=== PATIENT | male | born 1960 | race Caucasian/White ===

== ENCOUNTER → 2020-05-06 08:09 | Outpatient (BNVA) | payer SELFPAY | PROVIDERS: Visit Provider Internal Medicine ==

== ENCOUNTER 2025-05-16 10:45 | Outpatient (AMB) | payer OTHER, SELFPAY ==
[2025-05-16 11:20] VITALS: BMI 37.7
--- NOTE | 2025-05-16 11:20 | A.SPINEOV_ITS ---
Vital Signs 05/16/25 11:20 Height 5 ft 9 in Weight 255 lb BMI 37.7 Intake Visit Reasons: Back pain Intake Note: Mr. Osborn is here today c/o low back pain running down groin and legs. MRI done at [facility]. Professional Development Instructor Required: No Allergies No Known Allergies Allergy (Verified 05/16/25 11:27) Physical Exam Vital Signs: BMI result Body Mass Index 37.7 Assessment & Plan Assessment & Plan (1) Back pain: Code(s): M54.9 - Dorsalgia, unspecified Category: Medical Plan Dear Dr Bejarano, Thank you for referring Mr Osborn to our office today. He is a very nice 64-year-old gentleman presents to the office today for evaluation of chronic low back pain radiating down his bilateral legs, left greater than right. He also feels pain in his bilateral buttocks and hips. The pain is aggravated with standing and walking or doing any kind of bending with lifting. He saw Dr. Mcgee at [facility] about a year ago for this, was told that he was too overweight and would not be a surgical candidate. He has been continuing to just deal with the pain, he will take Tylenol but it does not really do much. He drinks 5-6 beers a day which does help numb the pain a little bit and he will take marijuana gummies at night. 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 He even started taking Wegovy to lose weight and has lost 30 lb but has not improved his pain. 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 PMH: He has history of hypertension, he has stage 3 kidney disease which he tells me his from the hypertension, history of tachycardia which is managed with metoprolol. He has seasonal allergies. He underwent a hip replacement a year or 2 ago I believe. He has had bilateral hernia surgeries but no major abdominal surgeries. Denies any history of heart attacks, strokes, major pulmonary disease. He did smoke in quit about 10 years ago. He denies any liver disease, coagulopathies, blood clots, cancer or unusual infections. Social hx: He quit smoking about 10 years ago, drinks 5-6 beers a day and has been doing that for quite some time, takes marijuana gummies at night Medications: Wixela inhaler which he takes only seasonally when he has allergies, valsartan, metoprolol, hydralazine, bumetanide, simvastatin, vitamin- D, Pepcid, Wegovy, omeprazole and ondansetron Allergies: None Physical exam: Awake alert oriented no acute distress, slow to stand up, has localized pain over the mid lumbar area. Strength and reflexes are normal. Imaging review: Lumbar MRI done at [facility] from 2023, compared to 2024. There also flexion-extension x-rays done at [facility]. He has transitional anatomy. He has what looks like bilateral pars defects at L5 with severe disc degenerati on and foraminal stenosis. He has a very slight spondylolisthesis seen on the MRI which when compared to his standing flexion-extension x-rays done at [facility] does appear to get worse. He also is developing significant facet arthropathy at the L4-5 level on the left. It looks as though he may have a subtle compression fracture at L1 which is old. Impression: 64-year-old male presents with chronic low back pain radiating down both legs, who has a spondylolysis at L5 with severe disc collapse at L5-S1 and foraminal stenosis which I believe would explain his back pain and bilateral buttock pain and leg pain. He had been previously seen by Dr. Mcgee who wanted him to lose weight. He has lost 30 lb and his still see no improvement in his pain and discomfort. He has been through conservative treatment. Typically this is something Dr. Mercado would offer either an oblique lumbar interbody fusion versus an anterior lumbar interbody fusion. Because of some of the unusual anatomy with a spondylolysis and what looks like facet arthropathy developing above, and in the setting of what looks like a possible compression fracture at L1, I would like to get a noncontrast lumbar CT to better look at the bone quality and for surgical planning purposes. Once the CT is done, I will see him back in the office on a day Dr. Mercado is here. Thank you for allowing us to care for your patient. The total time spent with this visit with this patient was 45 minutes reviewing history, physical exam, lumbar imaging review, and implementation of treatment plan or further diagnostic testing Artemio Mercado MD,PhD [facility] Orders: Orders CT lumbar spine wo IV con Today M54.9 - Dorsalgia, unspecified Coding Level of Care Code New Pt Level 4 (76376) Diagnoses Back pain M54.9
== END 2025-05-16 13:12 | disposition home or self-care (01) ==
LOC: HO.HNS 10:46
PROVIDERS: PCP Internal Medicine; Referring Provider Internal Medicine; Visit Provider Physician Assistant
DX: M54.9 Dorsalgia, unspecified (principal)
CPT/HCPCS: 99204